=== PATIENT | female | born 1955 | race Caucasian/White ===

== ENCOUNTER 2017-01-01 21:07 | Emergency (ER) | payer OTHER ==
[~2017-01-01] VITALS: Ht 160 cm; Wt 78.5 kg
[2017-01-01 21:25] VITALS: Ht 160 cm; Wt 78.5 kg
[2017-01-01 21:59] LABS: URINE BLOOD (Dip) POC Trace-intact (NEGATIVE)
[2017-01-01] MEDS ORDERED: ONDANSETRON 4 MG INJ IV STA (22:06)
[2017-01-01] MEDS ORDERED: SOD CHLORIDE 0.9% 1,000 ML IV STA (22:06)
[2017-01-01] MEDS ORDERED: MECLIZINE 12.5 MG TAB PO ONE (22:30)
[2017-01-01 22:33] LABS: ADD SCAN DIFF NO
[2017-01-01 22:36] LABS: BASOPHILS % 0.4 % (0.0-2.0); EOSINOPHILS # 0.1 10^3/ul (0.0-0.5); EOSINOPHILS % 1.9 % (0.0-7.0); HEMATOCRIT 37.4 % (37.0-47.0); HEMOGLOBIN 12.2 g/dl (12.0-16.0); LYMPHOCYTES # 1.7 10^3/ul (0.8-2.9); LYMPHOCYTES % 22.3 % (15.0-51.0); MEAN CORPUSCULAR HEMOGLOBIN 27.5 pg (29.0-33.0); MEAN CORPUSCULAR HGB CONC 32.6 g/dl (32.0-37.0); MEAN CORPUSCULAR VOLUME 84.4 fl (82.0-101.0); MEAN PLATELET VOLUME 10.6 fl (7.4-10.4); MONOCYTE # 0.5 10^3/ul (0.3-0.9); MONOCYTES % 6.6 % (0.0-11.0); NEUTROPHIL # 5.1 10^3/ul (1.6-7.5); NEUTROPHILS % 68.5 % (39.0-77.0); PLATELET COUNT 189 10^3/UL (140-415); RED BLOOD COUNT 4.43 10^6/ul (4.20-5.40); RED CELL DISTRIBUTION WIDTH 13.5 % (11.5-14.5); WHITE BLOOD COUNT 7.4 10^3/ul (4.8-10.8)
--- NOTE | 2017-01-01 22:40 | RADRPT ---
PROCEDURE: CT brain without contrast CLINICAL INDICATION: Dizziness. Sudden onset of vertigo TECHNIQUE: A CT of the brain was performed utilizing axial sections from the skull base through th e vertex without contrast. Sagittal and coronal images were also reformatted. The exam CTDIvol = 41. 44 mGy and DLP = 720.23 mGy-cm. COMPARISON: None available FINDINGS: No acute intracranial hemorrhage is identified. There is no mass effect or midline shift. No extra -axial fluid collection is seen. The ventricles and sulci are within normal limits for size and con figuration for the patient's provided age of 61 years. The density of the brain is within normal li mits. Dobbs-white differentiation is preserved. No density alteration is demonstrated within the po ns or cerebellum. The fourth ventricle is midline The osseous structures are unremarkable. Chronic appearing posterior left ethmoid air cell disease is present. The remaining paranasal sinuses and mastoid air cells are clear. RPTAT:HJJR IMPRESSION: 1. Unremarkable noncontrast CT of the brain for the patient's age. 2. Chronic-appearing posterior left ethmoid sinus disease. Physician Majo Date Time Electronically viewed and signed by Physician Majo on 01/01/2017 22:39 /
[2017-01-01 22:42] LABS: ADD UMIC YES; URINE BILIRUBIN (Dip) NEGATIVE (NEGATIVE); URINE BLOOD (Dip) TRACE (NEGATIVE); URINE COLOR LT. YELLOW (YELLOW); URINE GLUCOSE (Dip) NEGATIVE (NEGATIVE); URINE KETONES (Dip) NEGATIVE (NEGATIVE); URINE LEUKOCYTE ESTERASE (Dip) 1+ (NEGATIVE); URINE NITRITE (Dip) NEGATIVE (NEGATIVE); URINE TOTAL PROTEIN (Dip) TRACE (NEGATIVE); URINE UROBILINOGEN (Dip) 0.2 E.U./dL (0.1-1.0)
[2017-01-01 23:03] LABS: INR 0.95; PROTIME 12.7 Sec (12.2-14.2)
[2017-01-01 23:04] LABS: PARTIAL THROMBOPLASTIN TIME 23.6 Sec (25.0-35.0)
[2017-01-01 23:05] LABS: BACTERIA,URINE FEW; SQUAMOUS EPITHELIAL CELL,UR MODERATE; URINE RBCS 0-2 /HPF (0)
[2017-01-01 23:10] LABS: ALBUMIN 4.1 g/dl (3.3-4.9); ALBUMIN/GLOBULIN RATIO 0.97; BILIRUBIN,INDIRECT 0.2 mg/dl (0-1.1); BILIRUBIN,TOTAL 0.2 mg/dl (0.2-1.3); CALCIUM 9.5 mg/dl (8.4-10.2); CREATININE 0.52 mg/dl (0.44-1.00); POTASSIUM 3.5 mmol/L (3.5-5.1); TOTAL PROTEIN 8.3 g/dl (6.1-8.1)
[2017-01-02 00:16] VITALS: BP 155/74; PULSE 94; RESP 17
[2017-01-02] MEDS ORDERED: ONDA4TAB14 PO (00:41)
[2017-01-02] MEDS ORDERED: MECL-77 PO (00:41)
--- NOTE | 2017-01-06 17:55 | ERD ---
DATE OF SERVICE: 01/01/2017 HISTORY OF PRESENT ILLNESS: This 61-year-old female who presents to the emergency room for sudden onset dizziness and vomiting that began yesterday. She states that the dizziness is a sensation of the room spinning. She has never had a feeling like this. She states that she has no other focal weaknesses or neurological deficits. She noticed that her blood pressure was very high when the symptoms started. She has been taking medications and the blood pressure has come down on its own. She did vomit 2 times because of the dizziness. It does improve and then get worse again. She believes it is related to changes in position of her body. She has no pain, chest or otherwise . No shortness of breath. REVIEW OF SYSTEMS: A 10-point review of systems is negative except as in HPI. Past medical Hx: HTN Past Surgical Hx: denies Family Hx: noncontributory Social Hx: Denies tobacco, alcohol, and other drugs PHYSICAL EXAMINATION: TRIAGE VITAL SIGNS: Temperature 98.9, pulse 107, blood pressure 188/93, respirations 20, oxygen saturation 95% on room air. GENERAL: No acute distress. HEENT: Normocephalic, atraumatic. Tympanic membranes within normal limits. Eyes: DIMA, EOMI. NECK: Supple, no JVD or meningismus. CARDIAC: Regular rate and rhythm. No murmurs. LUNGS: Clear to auscultation bilaterally. ABDOMEN: Soft, nontender, nondistended, no masses. EXTREMITIES: No cyanosis, clubbing or edema. SKIN: No rashes or lesions. NEUROLOGIC: Alert and oriented x3, cranial nerves II through XII intact, no cerebellar deficits. Normal gait. VASCULAR: Distal pulses intact all 4 extremities. DIAGNOSTIC DATA: Laboratories, CBC is completely within normal limits as is BMP , liver function tests and lipase. Coagulation studies are within normal limits with an INR of 0.95. Urinalysis is grossly negative for significant infection. CT head interpretation: I seen no acute process. I see no hemorrhage, no mass effect, no midline shift. EMERGENCY ROOM COURSE AND MEDICAL DECISION MAKING: The patient was given a workup including head CT and cardiac monitoring. While the symptoms sounded most consistent with a peripheral cause of vertigo, she also had high blood pressure at the time. A thorough workup was appropriate. Her blood pressure was immediately rechecked and was much lower than the original value. Her heart rate also had decreased from triage without treatment. She has no head CT evidence of pathology and her symptoms were easily resolved with Zofran and Antivert to the point that she was asymptomatic. She also had no laboratory evidence of any intra-abdominal process. She had a benign abdominal exam. A completely normal neurological exam. At this point, I am going to discharge her with Antivert and Zofran and instructed to see an ENT doctor and follow up through her primary care doctor for further evaluation of her vertigo. DISCHARGE DIAGNOSES: 1. Acute vertigo. 2. Hypertension. 3. Vomiting. DISPOSITION: Home in stable condition. Dictated By: CARMELITA PENA Conf#: [id number] DID#: [id number]
== END 2017-01-02 00:45 | disposition home or self-care (01) ==
LOC: E/R 21:07
DX: R42 Dizziness and giddiness (principal); I10 Essential (primary) hypertension; R11.10 Vomiting, unspecified; R40.2142 Coma scale, eyes open, spontaneous, at arrival to emergency department; R40.2252 Coma scale, best verbal response, oriented, at arrival to emergency department; R40.2362 Coma scale, best motor response, obeys commands, at arrival to emergency department; R00.1 Bradycardia, unspecified
CPT/HCPCS: 36415; 70450; 80053; 81001; 83690; 85025; 85610; 85730; 96374; 99285; J2405; J7030; 81003